=== PATIENT | female | born 1990 | race Caucasian/White ===

== ENCOUNTER 2019-01-10 18:52 | Emergency (ER) | payer OTHER ==
[2019-01-10 19:02] VITALS: BP 140/81; PULSE 85; TEMP 97.7; BMI 38.4
--- NOTE | 2019-01-10 19:32 | PDOC ---
History of Present Illness - General Chief Complaint: Nausea/Vomiting Stated Complaint: NAUSEA Time Seen by Provider: 01/10/19 19:31 History Source: Patient Exam Limitations: No Limitations - History of Present Illness Initial Comments: 01/10/19 19:48 28 year old female with no PMH presented to ED for nausea/vomiting/upper abdominal pain since 0400 this AM. Pt stated she ate sushi last night. Pt denied diarrhea, fever. Pt reported she vomited 14 times today despite taking Zofran 4 mg SL at 1100 today and 1700 today. Pt reported yellow color to vomit, denied blood. Pt denied recent travel out of the country. Allergies: NKDA Past History - Past Medical History Allergies/Adverse Reactions: Allergies Allergy/AdvReac Type Severity Reaction Status Date / Time No Known Allergies Allergy Verified 01/10/19 18:57 Home Medications: Ambulatory Orders Ondansetron [Zofran Odt -] 4 mg SL TID #9 od.tablet 01/10/19 COPD: No - Immunization History Immunization Up to Date: Yes - Suicide/Smoking/Psychosocial Hx Smoking History: Never smoked Hx Alcohol Use: No Drug/Substance Use Hx: No Review of Systems - Review of Systems Able to Perform ROS?: Yes Comments:: 01/10/19 19:54 General: denied fever, chills, generalized weakness. HEENT: denied sore throat, rhinorrhea, ear pain. Heart: denied chest pain, palpitations, syncope, diaphoresis. Respiratory: denied shortness of breath, cough, sputum production, hemoptysis. Abdomen: admitted to abdominal pain, nausea, vomiting. denied diarrhea, constipation, blood in stool. : denied dysuria, increased urinary frequency, hematuria, urinary incontinence , flank pain. Back: denied back pain. Musculoskeletal: denied joint pain, muscle pain, joint swelling. Neurological: denied headache, dizziness, numbness, tingling, weakness. Skin: denied rash, laceration, abrasion. *Physical Exam - Vital Signs Last Vital Signs Temp Pulse Resp BP Pulse Ox 97.7 F 85 17 140/81 100 01/10/19 18:58 01/10/19 18:58 01/10/19 18:58 01/10/19 18:58 01/10/19 18:58 - Physical Exam Comments: 01/10/19 19:55 Constitutional: Well-nourished, Well-developed, appearing stated age. HEENT: head is normocephalic, atraumatic. EOMI. PERRLA. Neck: supple. Full ROM. Heart: regular rhythm. no murmurs, rubs or gallops. Lungs: clear to auscultation bilaterally. no crackles, rhonchi or wheezing. no stridor. Abdomen: soft. tenderness to epigastrium and LUQ. decreased bowel sounds. no rebound, guarding, masses. Extremities: peripheral pulses intact. no lower extremity edema. Neurological: CN 2-12 grossly intact. moves all four extremities. Psych: awake, alert, oriented x3. follows commands. answers questions appropriately. ED Treatment Course - LABORATORY CBC & Chemistry Diagram: 01/10/19 19:43 01/10/19 19:43 Medical Decision Making - Medical Decision Making 01/10/19 19:55 28 year old female with no PMH presented to ED for nausea/vomiting/epigastric pain since 0400 this morning. Initial Vital Signs Temp Pulse Resp BP Pulse Ox 97.7 F 85 17 140/81 100 01/10/19 18:58 01/10/19 18:58 01/10/19 18:58 01/10/19 18:58 01/10/19 18:58 Afebrile. No tachycardia. No tachypnea. No hypotension. No hypoxia on room air. Labs ordered: CBC, CMP, UA, urine Imaging ordered: none Medications ordered: Zofran IV 4 mg, normal saline 1000 cc bolus, pepcid, maalox CBC WBC 13.6 K/mm3 (4.0-10.0) H 01/10/19 19:43 RBC 4.42 M/mm3 (3.60-5.2) 01/10/19 19:43 Hgb 12.5 GM/dL (10.7-15.3) 01/10/19 19:43 Hct 39.1 % (32.4-45.2) 01/10/19 19:43 MCV 88.5 fl (80-96) 01/10/19 19:43 MCH 28.3 pg (25.7-33.7) 01/10/19 19:43 MCHC 31.9 g/dl (32.0-36.0) L 01/10/19 19:43 RDW 13.0 % (11.6-15.6) 01/10/19 19:43 Plt Count 342 K/MM3 (134-434) 01/10/19 19:43 MPV 10.7 fl (7.5-11.1) 01/10/19 19:43 Absolute Neuts (auto) 11.7 K/mm3 (1.5-8.0) H 01/10/19 19:43 Neutrophils % 86.0 % (42.8-82.8) H 01/10/19 19:43 Lymphocytes % 10.4 % (8-40) 01/10/19 19:43 Monocytes % 3.3 % (3.8-10.2) L 01/10/19 19:43 Eosinophils % 0.1 % (0-4.5) 01/10/19 19:43 Basophils % 0.2 % (0-2.0) 01/10/19 19:43 Nucleated RBC % 0 % (0-0) 01/10/19 19:43 CMP Sodium 142 mmol/L (136-145) 01/10/19 19:43 Potassium 4.3 mmol/L (3.5-5.1) 01/10/19 19:43 Chloride 107 mmol/L (98-107) 01/10/19 19:43 Carbon Dioxide 28 mmol/L (21-32) 01/10/19 19:43 Anion Gap 8 MMOL/L (8-16) 01/10/19 19:43 BUN 11 mg/dL (7-18) 01/10/19 19:43 Creatinine 0.7 mg/dL (0.55-1.3) 01/10/19 19:43 Creat Clearance w eGFR 101.15 (>60) 01/10/19 19:43 Random Glucose 93 mg/dL (74-106) 01/10/19 19:43 Calcium 8.1 mg/dL (8.5-10.1) L 01/10/19 19:43 Magnesium 1.9 mg/dL (1.8-2.4) 01/10/19 19:43 Total Bilirubin 0.3 mg/dL (0.2-1) 01/10/19 19:43 AST 27 U/L (15-37) 01/10/19 19:43 ALT 27 U/L (13-61) 01/10/19 19:43 Alkaline Phosphatase 54 U/L (45-117) 01/10/19 19:43 Total Protein 7.6 g/dl (6.4-8.2) 01/10/19 19:43 Albumin 3.7 g/dl (3.4-5.0) 01/10/19 19:43 No electrolyte abnormalities. No OLIVER. Lipase 93. Urine Test Results Urine Color Red 01/10/19 19:31 Urine Appearance Cloudy 01/10/19 19:31 Urine pH >= 9.0 (5.0-8.0) H 01/10/19 19:31 Ur Specific [place] 1.031 (1.010-1.035) 01/10/19 19:31 Urine Protein 3+ (NEGATIVE) H 01/10/19 19:31 Urine Glucose (UA) Negative (NEGATIVE) 01/10/19 19:31 Urine Ketones Negative (NEGATIVE) 01/10/19 19:31 Urine Blood 3+ (NEGATIVE) H 01/10/19 19:31 Urine Nitrite Negative (NEGATIVE) 01/10/19 19:31 Urine Bilirubin Negative (NEGATIVE) 01/10/19 19:31 Ur Leukocyte Esterase 1+ (NEGATIVE) H 01/10/19 19:31 WBC<10 Positive epithelial cells Aysmptomatic No UTI Urine test negative. 01/10/19 21:29 Pt reassessed, reported improvement of symptoms, reported no vomiting. Pt given PO challenge. 01/10/19 22:18 Pt tolerate PO challenge, reported she would like to go home. Pt discharged. Discharge prescription: Zofran 4 mg SL *DC/Admit/Observation/Transfer Diagnosis at time of Disposition: Nausea & vomiting - Discharge Dispostion Disposition: HOME Condition at time of disposition: Improved Decision to Admit order: No - Prescriptions Prescriptions: Ondansetron [Zofran Odt -] 4 mg SL TID #9 od.tablet - Referrals Referrals: Lina Alicea MD [Primary Care Provider] - - Patient Instructions Printed Discharge Instructions: [place] Diet, DI for Dehydration -- Adult, DI for Vomiting -- Adult Additional Instructions: I have sent a prescription to your pharmacy for an anti-nausea medication, called Zofran. Take as advised on label. Follow up with your primary care doctor within 3-4 days. Take Tylenol over the counter for your pain or fever. Take as advised on label. Eat simple foods like bread, rice toast, applesauce for 24-48 hours. Increase your diet as tolerated. Drink lots of pedialyte or gatorade to replete your electrolytes. Water will not give you the electrolyte you are losing in the vomit. Return to the Emergency Department for vomiting despite Zofran use, increasing pain, chest pain, shortness of breath, blood in vomit, fever>102F, or any other new, worsening or concerning symptoms. - Post Discharge Activity Forms/Work/School Notes: Back to Work
[2019-01-10] MEDS ORDERED: ONDANSETRON 4 MG/2 ML VIAL IVPUSH ONE (19:33)
[2019-01-10] MEDS ORDERED: SODIUM CHLORIDE 1,000 ML IV STA (19:33)
[2019-01-10] MEDS ORDERED: ONDANSETRON 4 MG/2 ML VIAL ONE (19:37)
[2019-01-10] MEDS ORDERED: MAG HYDROX/AL HYDROX/SIMETH 30 ML UNIT-DOSE CUP PO ONE (19:48)
[2019-01-10] MEDS ORDERED: FAMOTIDINE 20 MG/50 ML IVPB 20 MG/50 ML MG IVPB ONE ×2 (19:48→19:51)
[2019-01-10] MEDS ORDERED: MAG HYDROX/AL HYDROX/SIMETH 30 ML UNIT-DOSE CUP ONE (19:51)
[2019-01-10 19:59] LABS: BASO % 0.2 % (0-2.0); EOS % 0.1 % (0-4.5); HEMATOCRIT 39.1 % (32.4-45.2); HEMOGLOBIN 12.5 GM/dL (10.7-15.3); LYMPH % 10.4 % (8-40); MCH 28.3 pg (25.7-33.7); MCHC 31.9 g/dl (32.0-36.0); MEAN CELL VOLUME 88.5 fl (80-96); MEAN PLT VOLUME 10.7 fl (7.5-11.1); MONO % 3.3 % (3.8-10.2); PLATELET COUNT 342 K/MM3 (134-434); RBC 4.42 M/mm3 (3.60-5.2); WHITE BLOOD COUNT 13.6 K/mm3 (4.0-10.0)
--- NOTE | 2019-01-10 20:35 | PDOC ---
Attending Attestation - HPI HPI: 01/10/19 20:56 The patient is a 28 year old female, with no significant PMH of who presents to the emergency department with one day of nausea, vomiting, and upper abdominal pain. Patient states she has had 14 episodes of yellow vomit since 4am. The patient states she took 4mg SL Zofran at 11am and then again at 5pm, with no relief promoting her arrival to the ED. The patient states she had a rodriguez based dips last night at around 9pm. The patient denies chest pain, shortness of breath, headache or dizziness. The patient denies fever, chills, diarrhea or constipation. The patient denies dysuria, frequency, urgency or hematuria. Allergies: NKDA Past surgical history: None reported Social history: No reported PCP: Lina Hale - Physicial Exam PE: 01/10/19 20:56 ADULT EXAM GENERAL: Awake, alert, and fully oriented, in no acute distress HEAD: No signs of trauma EYES: PERRLA, EOMI, sclera anicteric, conjunctiva clear ENT: Auricles normal inspection, hearing grossly normal, nares patent, oropharynx clear without exudates. Moist mucosa NECK: Normal ROM, supple, no lymphadenopathy, JVD, or masses LUNGS: Breath sounds equal, clear to auscultation bilaterally. No wheezes, and no crackles HEART: Regular rate and rhythm, normal S1 and S2, no murmurs, rubs or gallops ABDOMEN:(+) Gassy on LLQ. (+) Minimal tenderness on LLQ. Soft, nontender, normoactive bowel sounds. No guarding, no rebound. No masses EXTREMITIES: Normal range of motion, no edema. No clubbing or cyanosis. No cords, erythema, or tenderness NEUROLOGICAL: Cranial nerves II through XII grossly intact. Normal speech, normal gait SKIN: Warm, Dry, normal turgor, no rashes or lesions noted. <Kvng Batista - Last Filed: 01/10/19 20:56> - Resident Resident Name: Samantha Rivas - ED Attending Attestation I have performed the following: I have examined & evaluated the patient, The case was reviewed & discussed with the resident, I agree w/resident's findings & plan - Medical Decision Making 01/10/19 20:36 Pt ate at a restaurant last night then at 4am began vomiting. Vomited 14x. SHe states that she had eaten mayonnaise based dip at the restaurant, along with eel , shrimp tempura Pt likely has food poisoning. 01/10/19 20:51 Pt has a normal exam and normal labs and she is tolerating water. After a bag of [id number], she will likely be discharged. Pt is currently on her menses. 01/10/19 20:59 Pt has andry bloody urine specimen due to menses. She has no dysuria. I will not treat her for a UTI based on the leuk Esterase 1+ on the UA. <Kylee Boyd - Last Filed: 01/10/19 21:00> Attestations - Attestations 01/10/19 20:56 Documentation prepared by Kvng Batista, acting as medical director for Kylee Boyd MD <Kvng Batista - Last Filed: 01/10/19 20:56>
[2019-01-10 20:36] LABS: ALBUMIN 3.7 g/dl (3.4-5.0); ALK PHOS 54 U/L (45-117); ANION GAP 8 MMOL/L (8-16); BILIRUBIN,TOTAL 0.3 mg/dL (0.2-1); BLOOD UREA NITROGEN 11 mg/dL (7-18); CALCIUM 8.1 mg/dL (8.5-10.1); CHLORIDE 107 mmol/L (98-107); CO2 28 mmol/L (21-32); CREATININE 0.7 mg/dL (0.55-1.3); GLUCOSE,RANDOM 93 mg/dL (74-106); MAGNESIUM 1.9 mg/dL (1.8-2.4); POTASSIUM 4.3 mmol/L (3.5-5.1); SGOT/AST 27 U/L (15-37); SGPT/ALT 27 U/L (13-61); SODIUM 142 mmol/L (136-145); TOT PROT 7.6 g/dl (6.4-8.2)
[2019-01-10] MEDS ORDERED: DEXTROSE 5%-NORMAL SALINE 1,000 ML IV ONE (20:40)
[2019-01-10 20:48] LABS: HCG,QUALITATIVE URINE Negative
[2019-01-10 20:49] LABS: EPI CELLS 10.9 /HPF (0-5/HPF); PH,URINE >= 9.0 (5.0-8.0); URINE APPEARANCE CLOUDY; URINE BACTERIA 305.7 /hpf (NEGATIVE); URINE BILIRUBIN NEGATIVE (NEGATIVE); URINE CASTS 6 /hpf (0-8); URINE COLOR RED; URINE GLUCOSE (UA) NEGATIVE (NEGATIVE); URINE KETONE NEGATIVE (NEGATIVE); URINE LEUK ESTERASE 1+ (NEGATIVE); URINE NITRITE NEGATIVE (NEGATIVE); URINE PROTEIN 3+ (NEGATIVE); URINE RBC 765 /hpf (0-4); URINE WBC 7 /hpf (0-5)
[2019-01-10 21:48] LABS: LIPASE 93 U/L (73-393)
== END 2019-01-10 22:41 | disposition home or self-care (01) ==
LOC: JER 18:52
PROC: 3E0337Z Introduction of Electrolytic and Water Balance Substance into Peripheral Vein, Percutaneous Approach (ICD-10-PCS; principal; 2019-01-10)
PROC: 3E033GC Introduction of Other Therapeutic Substance into Peripheral Vein, Percutaneous Approach (ICD-10-PCS; 2019-01-10)
PROC: 3E033GC Introduction of Other Therapeutic Substance into Peripheral Vein, Percutaneous Approach (ICD-10-PCS; 2019-01-10)
DX: R11.2 Nausea with vomiting, unspecified (principal)
CPT/HCPCS: 36415; 80053; 81003; 83690; 83735; 84703; 85025; 99282-25; J7030

== ENCOUNTER 2019-11-03 06:11 | Emergency (ER) | payer BC, OTHER ==
[2019-11-03] MEDS ORDERED: METOCLOPRAMIDE HCL INJECTION 10 MG/2 ML VIAL IVPUSH ONE (06:20)
[2019-11-03] MEDS ORDERED: SODIUM CHLORIDE 1,000 ML IV STA (06:20)
[2019-11-03 06:32] VITALS: TEMP 98.1; BMI 38.0
[2019-11-03] MEDS ORDERED: METOCLOPRAMIDE HCL INJECTION 10 MG/2 ML VIAL ONE (06:51)
--- NOTE | 2019-11-03 07:21 | PDOC ---
Attending Attestation - Resident Resident Name: Darleen Rogel - HPI HPI: 11/03/19 07:46 Pt presents to the ED complaining of gradual onset of frontal headache accompanied by nausea and vomiting that began last night. Pain is similar to previous migraines. Denies fever, photophobia or stiff neck. - Physicial Exam PE: 11/03/19 07:52 Agree with resident exam. Patient is alert and oriented and in no acute distress. Neck is supple. Lungs are clear. Heart regular rate and rhythm. - Medical Decision Making 11/03/19 07:52 Pt presents to the ED complaining of frontal headache similar to previous migraines. Very low suspcion for menigitis or subarachnoid. Will check labs and treat RODRIGUEZ and nausea with reglan. Will reassess.
[2019-11-03] MEDS ORDERED: FAMOTIDINE 20 MG/50 ML IVPB 20 MG/50 ML MG IVPB ONE ×2 (07:30→09:57)
--- NOTE | 2019-11-03 07:30 | PDOC ---
History of Present Illness - General Chief Complaint: Nausea/Vomiting Stated Complaint: VOMITING Time Seen by Provider: 11/03/19 07:19 - History of Present Illness Initial Comments: Grace Ruiz is an otherwise healthy 29yo woman who presents with nausea and 2 episodes of vomiting overnight. She states that she was feeling slightly nauseated when she went to bed, then woke around 11 and had several episodes of NBNB vomiting along with retching. A friend gave her 2x PO zofran, but she vomited immediately after taking it both times. Ms Ruiz denies any associated symptoms including fever/chills, cough, congestion, diarrhea, severe abdominal pain, sick contacts, or recent travel. She does endorse frequent heartburn. She also endorses hosting a [employer] constitution party last night, but she states that she did not have any unusual or suspicious foods and drank 3 cans of beer over a period of several hours. She denies that she could be , stating that she currently has her period. Past History - Past Medical History Allergies/Adverse Reactions: Allergies Allergy/AdvReac Type Severity Reaction Status Date / Time No Known Allergies Allergy Verified 11/03/19 06:32 Home Medications: Ambulatory Orders Ondansetron [Zofran Odt -] 4 mg SL TID #9 od.tablet 11/03/19 COPD: No - Immunization History Immunization Up to Date: Yes - Psycho Social/Smoking Cessation Hx Smoking History: Never smoked Information on smoking cessation initiated: No Hx Alcohol Use: No Drug/Substance Use Hx: No Review of Systems - Review of Systems Comments:: General: No fevers, no chills, no weight or appetite change, no malaise HEENT: No changes in vision, no changes in hearing, no congestion, no sore throat CV: No chest pain, no palpitations, no LE edema Pulm: No SOB, no cough, no wheezing GI: +Nausea/vomiting, no change in bowel habits, no melena : No frequency, no urgency, no dysuria Musc: No back pain, no joint swelling, no recent injury Skin: No rash, no lesions, no erythema Endo: No excessive thirst, no heat/cold intolerance Heme: No unusual bruising or bleeding, no swollen glands Neuro: No syncope, no numbness/tingling, no focal weakness Vasc: No claudication Psych: No recent change in mood, no SI or HI *Physical Exam - Vital Signs Last Vital Signs Temp Pulse Resp BP Pulse Ox 98.1 F 92 H 16 116/84 98 11/03/19 06:11 11/03/19 06:11 11/03/19 06:11 11/03/19 06:11 11/03/19 06:11 - Physical Exam General: Comfortable, no acute distress HEENT: Atraumatic, PERRL, EOMI, MMM, voice normal, normal neck ROM Cards: RRR, no murmur appreciated Pulm: Comfortable on room air, clear to auscultation bilaterally Abd: Soft, nondistended. Mild LUQ and epigastric discomfort w/ palpation Ext: Atraumatic. No LE edema. ROM intact. WWP Skin: Normal color, no rashes or lesions Neuro: A&Ox3, CN grossly intact, normal speech, motor/sensory grossly intact and symmetric Psych: Mood appropriate to situation ED Treatment Course - LABORATORY CBC & Chemistry Diagram: 11/03/19 07:54 11/03/19 07:54 - Medications Given in the ED: ED Medications Discontinued Medications Generic Name Dose Route Start Last Admin Trade Name Freq PRN Reason Stop Dose Admin Sodium Chloride 1,000 mls @ 1,000 mls/hr 11/03/19 06:20 11/03/19 07:00 Normal Saline - IV 11/03/19 07:19 1,000 mls/hr ASDIR STA Administration Metoclopramide HCl 10 mg 11/03/19 06:20 11/03/19 07:00 Reglan Injection - IVPUSH 11/03/19 06:21 10 mg ONCE ONE Administration Medical Decision Making - Medical Decision Making 11/03/19 07:29 Grace Ruiz is an otherwise healthy 29yo woman who presents with nausea and 2 episodes of NBNB vomiting overnight. She endorses hosting a [employer] constitution party but denies any suspicious foods or heavy drinking, has no sick contacts, and no recent travel. She does have frequent heartburn. - IVF and reglan given prior to being seen. Pt states that she no longer has nausea. - Famotidine added given history of frequent heartburn - CBC, CMP, lipase, serum preg - Mild LUQ TTP but no RUQ, RLQ pain concerning for cholelithiasis, cholesystitis , or appendicitis. No diarrhea suggesting enteritis or cholitis. Most likely nausea/vomiting secondary to GERD/gastritis v change in diet from constitution party v secondary to alcohol intake. Low suspicion for pancreatitis given no known history of excessive alcohol intake, but lipase sent for evaluation. N/V possibly secondary to early , test sent - Will reassess 11/03/19 09:19 - Labs reviewed. No concerning abnormalities on chemistry. Preg negative - Lipase pending, will most likely d/c home when resulted - Pt feels significantly better, nausea resolved, no additional vomiting. Would like to go home. 11/03/19 09:48 - Lipase 293, not concerning - Discharge home Discussed with Dr Chiqui Rogel PGY2 Discharge - Discharge Information Problems reviewed: Yes Clinical Impression/Diagnosis: Nausea & vomiting Qualifiers: Vomiting type: unspecified Vomiting Intractability: non-intractable Qualified Code(s): R11.2 - Nausea with vomiting, unspecified Condition: Fair Disposition: HOME - Admission No - Additional Discharge Information Prescriptions: Ondansetron [Zofran Odt -] 4 mg SL TID #9 od.tablet - Follow up/Referral Referrals: Lina Alicea MD [Primary Care Provider] - - Patient Discharge Instructions Patient Printed Discharge Instructions: DI for Vomiting -- Adult Additional Instructions: Discharge Instructions: You were seen in the emergency department for nausea and vomiting. These symptoms resolved with medication. This is most likely due to a viral infection or from something you ate, and you should feel better within a few days without any special treatment. Home Care and Follow Up: - You have been prescribed a medication called Zofran that you may take every 8 hours as needed for nausea or vomiting. - Consider taking a daily acid medication such as Pepcid or Xantac while you are sick. Discuss continuing this medication with your primary doctor as you reported frequent heartburn. - Make sure you are drinking plenty of fluids while you are sick. Increase your normal fluid intake. It is OK if you do not feel like eating as long as you are staying well hydrated - You may use medications such as acetaminophen (Tylenol) 650-1000mg or ibuprofen (Advil, Motrin) 400-600mg every 6 hours as needed for pain or fever over 101F - You should feel better within a few days. If you are not feeling better in a week, follow up with your primary doctor. - Seek immediate care if you have worsening symptoms, you are unable to stay hydrated, you develop high fevers over 104F that do not come down with medication, or you have any other medical emergency. - Post Discharge Activity
[2019-11-03 08:39] LABS: BASO % 0.8 % (0-2.0); EOS % 1.4 % (0-4.5); HEMATOCRIT 36.6 % (32.4-45.2); HEMOGLOBIN 11.8 GM/dL (10.7-15.3); LYMPH % 33.8 % (8-40); MCH 28.6 pg (25.7-33.7); MCHC 32.2 g/dl (32.0-36.0); MEAN PLT VOLUME 11.2 fl (7.5-11.1); MONO % 4.6 % (3.8-10.2); NEUT % 59.4 % (42.8-82.8); PLATELET COUNT 330 K/MM3 (134-434); RBC 4.12 M/mm3 (3.60-5.2); RDW 13.6 % (11.6-15.6); WHITE BLOOD COUNT 7.3 K/mm3 (4.0-10.0)
[2019-11-03 09:04] LABS: ALBUMIN 3.6 g/dl (3.4-5.0); BILIRUBIN,TOTAL 0.1 mg/dL (0.2-1); BLOOD UREA NITROGEN 5.5 mg/dL (7-18); CALCIUM 8.1 mg/dL (8.5-10.1); CREATININE 0.7 mg/dL (0.55-1.3); TOT PROT 6.7 g/dl (6.4-8.2)
[2019-11-03 10:09] VITALS: BP 106/53; PULSE 87
== END 2019-11-03 10:11 | disposition home or self-care (01) ==
LOC: JER 06:11
PROC: 3E0337Z Introduction of Electrolytic and Water Balance Substance into Peripheral Vein, Percutaneous Approach (ICD-10-PCS; principal; 2019-11-03)
PROC: 3E033GC Introduction of Other Therapeutic Substance into Peripheral Vein, Percutaneous Approach (ICD-10-PCS; 2019-11-03)
DX: R11.2 Nausea with vomiting, unspecified (principal)
CPT/HCPCS: 36415; 80053; 83690; 84703; 85025; 99282-25; J7030